=== PATIENT | male | born 1995 | race Caucasian/White ===

== ENCOUNTER 2019-12-21 00:11 | Emergency (ER) | payer BC ==
[2019-12-21] MEDS ORDERED: Acetaminophen 500 MG TAB ONE (00:23)
== END 2019-12-21 00:27 | disposition home or self-care (01) ==
LOC: NAV ERS 00:11
DX: R50.9 Fever, unspecified (principal); Z48.00 Encounter for change or removal of nonsurgical wound dressing

== ENCOUNTER 2019-12-21 21:12 | Emergency (ER) | payer BC ==
[2019-12-21 22:25] LABS: #Basophils 0.1 thou/uL (0.0-0.2); #Eosinphils 0.8 thou/uL (0.0-0.7); #Lymphocytes 2.3 thou/uL (1.20-3.40); #Monocytes 0.9 thou/uL (0.11-0.59); #Neutrophils 8.4 thou/uL (1.40-6.50); %Basophils 1.1 % (0.0-1.0); %Eosinophils 6.7 % (0.0-10.0); %Lymphocytes 18.6 % (21.0-51.0); %Neutrophils 66.6 % (42.0-75.0); Hemoglobin 11.1 g/dL (14.0-18.0); Mean Corpuscular HGB CONC 36.2 g/dL (32.0-36.0); Mean Corpuscular Hemoglobin 31.4 pg (27.0-31.0); Mean Corpuscular Volume 86.7 fL (78.0-98.0); Mean Platelet Volume 6.6 fL (7.4-10.4); Platelet Count 290 thou/uL (130-400); RBC Distribution Width 9.8 % (11.5-14.5); Red Blood Cell (RBC) Count 3.55 mill/uL (4.70-6.10); White Blood Cell (WBC) Count 12.5 thou/uL (4.8-10.8)
[2019-12-21] MEDS ORDERED: cefTRIAXone\\ROCEPHIN 1 GM VIAL ONE (22:34)
[2019-12-21] MEDS ORDERED: Sodium Chloride 0.9% 1,000 ML ONE (22:34)
[2019-12-21] MEDS ORDERED: Sodium Chloride 0.9% 100 ML ONE (22:35)
[2019-12-21] MEDS ORDERED: Sodium Chloride 0.9% 250 ML 250 ML ONE (22:35)
[2019-12-21] MEDS ORDERED: Morphine 4 MG/ML VIAL ONE (22:36)
[2019-12-21 22:38] LABS: Amphetamine Not Detected (NotDetected); Barbiturates Screen Not Detected (NotDetected); Benzodiazepine Screen Detected (NotDetected); Cocaine Metabolite Screen Not Detected (NotDetected); Methadone Not Detected (NotDetected); Methamphetamine Not Detected (NotDetected); Opiate Screen Not Detected (NotDetected); Oxycodone Screen Not Detected (NotDetected); Phencyclidine (PCP) Not Detected (NotDetected); THC/Cannabinoid Screen Detected (NotDetected); Tricyclic Screen Not Detected (NotDetected)
[2019-12-21 22:39] LABS: Medtox Control Line Valid? VALID (VALID)
[2019-12-21 22:46] LABS: ALT (SGPT) 16 U/L (8-55); AST (SGOT) 17 U/L (5-34); Albumin 3.9 g/dL (3.5-5.0); Alcohol Less than 10 mg/dL (Less than 10); Alkaline Phosphatase 63 U/L (40-110); Anion Gap 15 mmol/L (10-20); BUN (Urea Nitrogen) 7 mg/dL (8.9-20.6); Bilirubin, Total 0.9 mg/dL (0.2-1.2); Calc. Creatinine Clearance 0 mL/min (70-130); Calcium 8.8 mg/dL (7.8-10.44); Carbon Dioxide 26 mmol/L (22-29); Chloride 99 mmol/L (98-107); Estimated GFR-MDRD Greater than 90; Globulin 2.6 g/dL (2.4-3.5); Glucose 94 mg/dL (70-105); Potassium 3.4 mmol/L (3.5-5.1); Protein, Total 6.5 g/dL (6.0-8.3); Sodium 137 mmol/L (136-145)
[2019-12-21] MEDS ORDERED: Acetaminophen 500 MG TAB ONE (23:19)
--- NOTE | 2019-12-21 23:59 | RAD ---
PORTABLE CHEST: 12/21/19 HISTORY: Cough. Comparison made to chest film of 12/18/[address] of 12/18/19. The lungs appear clear of infiltrate. There is a nodular density overlying the right mid lung which w as noted previously and is described on chest CT. IMPRESSION: No acute finding or interval change. POS: AGW
== END 2019-12-21 23:40 | disposition short-term general hospital (02) ==
LOC: NAV ERS 21:12
DX: T81.89XA Other complications of procedures, not elsewhere classified, initial encounter (principal); R50.9 Fever, unspecified
CPT/HCPCS: 36415; 71045; 80053; 80306; 80307; 83605; 85025; 87040; 96365; 96367; 96375; 99283; J0696; J2270; J3370; J3490; J7050

== ENCOUNTER 2020-10-16 23:04 | Emergency (ER) | payer BC ==
[2020-10-16] MEDS ORDERED: Lidocaine 1% (PF) 30 ML VIAL ONE (23:34)
[2020-10-16] MEDS ORDERED: Sulfameth/Trimethoprim DS 800-160mg TAB ONE (23:57)
== END 2020-10-17 00:04 | disposition home or self-care (01) ==
LOC: NAV ERS 23:04
DX: L02.511 Cutaneous abscess of right hand (principal); L03.011 Cellulitis of right finger; L08.9 Local infection of the skin and subcutaneous tissue, unspecified; R00.0 Tachycardia, unspecified; J45.909 Unspecified asthma, uncomplicated; F17.210 Nicotine dependence, cigarettes, uncomplicated
CPT/HCPCS: 26010; J2001

== ENCOUNTER 2020-11-13 21:47 | Emergency (ER) | payer BC ==
[2020-11-13] MEDS ORDERED: Tetracaine HCl 0.5% Ophth Soln 2 ML Bottle ONE (21:57)
[2020-11-13] MEDS ORDERED: Fluorescein Opthalmic Strip ONE (21:57)
== END 2020-11-13 22:29 | disposition home or self-care (01) ==
LOC: NAV ERS 21:47
DX: S05.01XA Injury of conjunctiva and corneal abrasion without foreign body, right eye, initial encounter (principal); J45.909 Unspecified asthma, uncomplicated; F17.210 Nicotine dependence, cigarettes, uncomplicated; X58.XXXA Exposure to other specified factors, initial encounter
CPT/HCPCS: 99283

== ENCOUNTER 2020-12-08 22:36 | Emergency (ER) | payer BC ==
[2020-12-09] MEDS ORDERED: Lidocaine 1% w/Epinephrine 1:100K 30 ML VIAL ONE (00:05)
[2020-12-09 00:10] LABS: #Basophils 0.2 thou/uL (0.0-0.2); #Eosinphils 0.4 thou/uL (0.0-0.7); #Monocytes 0.8 thou/uL (0.11-0.59); #Neutrophils 5.8 thou/uL (1.40-6.50); %Basophils 1.7 % (0.0-1.0); %Eosinophils 4.2 % (0.0-10.0); %Lymphocytes 22.1 % (21.0-51.0); %Monocytes 8.5 % (0.0-10.0); %Neutrophils 63.5 % (42.0-75.0); Hemoglobin 16.4 g/dL (14.0-18.0); Mean Corpuscular HGB CONC 34.2 g/dL (32.0-36.0); Mean Corpuscular Hemoglobin 30.5 pg (27.0-31.0); Mean Corpuscular Volume 88.9 fL (78.0-98.0); Mean Platelet Volume 7.4 fL (7.4-10.4); Platelet Count 324 thou/uL (130-400); RBC Distribution Width 10.2 % (11.5-14.5); White Blood Cell (WBC) Count 9.1 thou/uL (4.8-10.8)
[2020-12-09] MEDS ORDERED: Albuterol Sulfate 2.5 mg/3 ml Neb ONE (00:17)
[2020-12-09] MEDS ORDERED: Ventolin HFA Inhaler 60 PUFF INHALER ONE (00:18)
[2020-12-09 00:23] LABS: Acetaminophen Less than 6.0 mcg/mL (10.0-30.0); Alcohol Less than 10 mg/dL (Less than 10); Salicylate Less than 8.0 mg/dL (15.0-30.0)
[2020-12-09 00:28] LABS: BUN (Urea Nitrogen) 22 mg/dL (8.9-20.6); Bilirubin, Total 3.6 mg/dL (0.2-1.2); Calc. Creatinine Clearance 0 mL/min (70-130); Calcium 10.2 mg/dL (7.8-10.44); Carbon Dioxide 24 mmol/L (22-29); Chloride 102 mmol/L (98-107); Glucose 109 mg/dL (70-105); Potassium 3.9 mmol/L (3.5-5.1); Sodium 139 mmol/L (136-145)
[2020-12-09 00:29] LABS: ALT (SGPT) 18 U/L (8-55); AST (SGOT) 30 U/L (5-34); Alkaline Phosphatase 66 U/L (40-110); Globulin 2.8 g/dL (2.4-3.5); Protein, Total 7.8 g/dL (6.0-8.3)
[2020-12-09] MEDS ORDERED: Bacitracin 1 PK ONE (00:30)
[2020-12-09] MEDS ORDERED: Albuterol Sulfate 2.5 mg/0.5 ml Neb ONE (00:32)
[2020-12-09 00:36] LABS: Anion Gap 16 mmol/L (10-20)
[2020-12-09 00:37] LABS: Amphetamine Detected (NotDetected); Barbiturates Screen Not Detected (NotDetected); Benzodiazepine Screen Detected (NotDetected); Cocaine Metabolite Screen Not Detected (NotDetected); Medtox Control Line Valid? VALID (VALID); Methadone Not Detected (NotDetected); Methamphetamine Detected (NotDetected); Opiate Screen Not Detected (NotDetected); Oxycodone Screen Not Detected (NotDetected); Phencyclidine (PCP) Not Detected (NotDetected); THC/Cannabinoid Screen Detected (NotDetected); Tricyclic Screen Not Detected (NotDetected)
[2020-12-09] MEDS ORDERED: Boostrix 0.5 ML (Tdap) VIAL ONE (03:59)
[2020-12-09] MEDS ORDERED: predniSONE 20 MG TAB ONE (04:29)
== END 2020-12-09 05:15 ==
LOC: NAV ERS 22:36
DX: S01.81XA Laceration without foreign body of other part of head, initial encounter (principal); T42.4X1A Poisoning by benzodiazepines, accidental (unintentional), initial encounter; F19.10 Other psychoactive substance abuse, uncomplicated; R00.0 Tachycardia, unspecified; J45.901 Unspecified asthma with (acute) exacerbation; E86.0 Dehydration; F17.210 Nicotine dependence, cigarettes, uncomplicated; Z79.899 Other long term (current) drug therapy; W25.XXXA Contact with sharp glass, initial encounter
CPT/HCPCS: 12011; 36416; 70450; 71045; 72125; 80053; 80306; 80307; 85025; 90471; 90715; 94760; J7512; J7611; J7620

== ENCOUNTER 2022-01-29 12:07 | Emergency (ER) | payer BC ==
[2022-01-29] MEDS ORDERED: Sodium Chloride 0.9% 1,000 ML ONE (12:27)
[2022-01-29] MEDS ORDERED: Ondansetron PF 4 MG/2 ML Vial ONE (12:27)
[2022-01-29 12:47] LABS: #Basophils 0.2 thou/uL (0.0-0.2); #Eosinphils 0.3 thou/uL (0.0-0.7); #Lymphocytes 2.3 thou/uL (1.20-3.40); #Monocytes 0.8 thou/uL (0.11-0.59); %Basophils 1.7 % (0.0-1.0); %Eosinophils 3.4 % (0.0-10.0); %Lymphocytes 24.1 % (21.0-51.0); %Neutrophils 62.8 % (42.0-75.0); Hemoglobin 16.3 g/dL (14.0-18.0); Mean Corpuscular HGB CONC 32.9 g/dL (32.0-36.0); Mean Corpuscular Hemoglobin 29.8 pg (27.0-31.0); Mean Corpuscular Volume 90.7 fL (78.0-98.0); Platelet Count 316 thou/uL (130-400); RBC Distribution Width 10.2 % (11.5-14.5); Red Blood Cell (RBC) Count 5.46 mill/uL (4.70-6.10); White Blood Cell (WBC) Count 9.5 thou/uL (4.8-10.8)
[2022-01-29 13:03] LABS: ALT (SGPT) 17 U/L (8-55); AST (SGOT) 22 U/L (5-34); Albumin 4.9 g/dL (3.5-5.0); Alkaline Phosphatase 65 U/L (40-110); Anion Gap 20 mmol/L (10-20); BUN (Urea Nitrogen) 14 mg/dL (8.9-20.6); Bilirubin, Total 3.9 mg/dL (0.2-1.2); CK (CPK) 320 U/L (30-200); Calc. Creatinine Clearance 0 mL/min (70-130); Calcium 10.3 mg/dL (7.8-10.44); Carbon Dioxide 20 mmol/L (22-29); Chloride 101 mmol/L (98-107); Glucose 77 mg/dL (70-105); Magnesium 1.9 mg/dL (1.6-2.6); Potassium 4.3 mmol/L (3.5-5.1); Protein, Total 7.9 g/dL (6.0-8.3); Sodium 137 mmol/L (136-145)
== END 2022-01-29 17:38 | disposition home or self-care (01) ==
LOC: NAV ERS 12:07
DX: E86.0 Dehydration (principal); F10.10 Alcohol abuse, uncomplicated; R11.0 Nausea; J45.909 Unspecified asthma, uncomplicated; F17.210 Nicotine dependence, cigarettes, uncomplicated; Z79.899 Other long term (current) drug therapy
CPT/HCPCS: 80053; 82550; 83735; 85025; 94760; 96361; 96374; J2405; J7050